=== PATIENT | male | born 1960 | race African-American/Black ===

== ENCOUNTER 2017-03-27 10:49 | Day surgery (SDC) | payer OTHER ==
[~2017-03-27 10:49] MED LIST: Acetaminophen TAB* 325 MG PO PRN; Buffered Lidocaine 0.9% SYRIN* 5 ML/SYR SYRINGE INTRADERM ONE
[2017-03-27] MEDS ORDERED: Midazolam* 1 MG/ML 2 ML VIAL (2 MG) ONE (11:36)
[2017-03-27] MEDS ORDERED: fentaNYL* 50 MCG/ML 2 ML VIAL (100 MCG VIAL) ONE (11:36)
[2017-03-27] MEDS ORDERED: Trypan Blue 0.06% SOL* 0.5 ML BTL ONE (12:27)
[2017-03-27] MEDS ORDERED: Lidocaine 2% MPF* 2 ML VIAL ONE (13:00)
[2017-03-27] MEDS ORDERED: Proparacaine 0.5% OPHTH.SOL* 15 ML BTL ONE (13:00)
[2017-03-27] MEDS ORDERED: acetaZOLAMIDE TAB* 250 MG ONE (13:00)
[2017-03-27] MEDS ORDERED: Flurbiprofen 0.03% OPTH.SOL* 2.5 ML BTL ONE (13:00)
[2017-03-27] MEDS ORDERED: Neomycin/Polymy/Dex OPTH.SUSP* MAXITROL 0.1% 5 ML ONE (13:00)
[2017-03-27] MEDS ORDERED: Lidocaine 2% EPI 1:200000 MPF* 20 ML VIAL ONE (13:00)
[2017-03-27] MEDS ORDERED: Povidone Iodine 5% OPTH* 30 ML BTL ONE (13:00)
[2017-03-27] MEDS ORDERED: Phenylephrine 2.5% OPTH.SOL* 2 ML BTL ONE (13:00)
[2017-03-27] MEDS ORDERED: Cyclopentolate 1% OPTH.SOL* 2 ML BTL ONE (13:00)
[2017-03-27 13:41] VITALS: BP 134/89
--- NOTE | 2017-03-27 16:49 | OP ---
DATE OF OPERATION: 03/27/2017 - [facility] DATE OF : 1960. SURGEON: Otis Marin M.D. PREOPERATIVE DIAGNOSIS: Cataract right eye. POSTOPERATIVE DIAGNOSIS: Cataract right eye. OPERATIVE PROCEDURE: Phacoemulsification right eye with IOL. DESCRIPTION OF PROCEDURE: The patient was brought to the operating room after being given 1/2% Alcaine with epinephrine drops in the preoperative area. The eye was prepped and draped in the usual sterile fashion. Sterile drape and eyelid speculum were placed. Again, topical 1/2% Alcaine with epinephrine was given. A paracentesis incision was made at the 9 o'clock position with the No.75 blade. Clear cornea incision 2.2 x 2.2-mm was created at the 12 o'clock position starting at the anterior limbus using the 2.2-mm keratome. The anterior chamber was irrigated with 0.4 mL of 1% non-preservative intracameral lidocaine and filled with DisCoVisc. A capsulorrhexis was completed using the cystotome and the Utrata forceps. Hydrodissection was performed with balanced salt solution. The lens nucleus was removed with the Phacoemulsification handpiece without incident. Cortex was removed with the irrigation-aspiration handpiece. The capsular bag was re-inflated using DisCoVisc and an [id number] implant was inserted with the shooter. The irrigation-aspiration handpiece was used to remove all residual DisCoVisc. The eye was refilled with balanced salt solution and the wound checked and found to be watertight. Topical Maxitrol drops were given. Of note, because of white anterior cortex, the VisionBlue was used to stain the anterior capsule prior to capsulorrhexis. During the surgery, there was a very poor red reflex and concern is that there may be some vitreous hemorrhage behind his white cataract. The surgery was performed, however, without incident. [id number]/[facility] #: [id number] [facility]
== END 2017-03-27 13:36 | disposition home or self-care (01) ==
LOC: OREAST 10:49
PROVIDERS: ATTEND Specialist
DX: H25.11 Age-related nuclear cataract, right eye (principal); H43.813 Vitreous degeneration, bilateral; I48.91 Unspecified atrial fibrillation; Z95.0 Presence of cardiac pacemaker; I25.110 Atherosclerotic heart disease of native coronary artery with unstable angina pectoris; Z79.01 Long term (current) use of anticoagulants; I10 Essential (primary) hypertension; Z87.891 Personal history of nicotine dependence
CPT/HCPCS: A9270-GY; J2250; J3010; V2632

== ENCOUNTER 2017-04-03 09:38 | Day surgery (SDC) | payer OTHER ==
[2017-04-03] MEDS ORDERED: Midazolam* 1 MG/ML 2 ML VIAL (2 MG) ONE ×2 (12:03→12:35)
[2017-04-03] MEDS ORDERED: fentaNYL* 50 MCG/ML 2 ML VIAL (100 MCG VIAL) ONE (12:03)
[2017-04-03 13:03] VITALS: BP 122/77
[2017-04-03] MEDS ORDERED: Lidocaine 1% MPF wEPI 200,000* 30 ML SDV ONE (13:51)
[2017-04-03] MEDS ORDERED: Phenylephrine 2.5% OPTH.SOL* 2 ML BTL ONE (13:51)
[2017-04-03] MEDS ORDERED: Cyclopentolate 1% OPTH.SOL* 2 ML BTL ONE (13:51)
[2017-04-03] MEDS ORDERED: Neomycin/Polymy/Dex OPTH.SUSP* MAXITROL 0.1% 5 ML ONE (13:51)
[2017-04-03] MEDS ORDERED: Proparacaine 0.5% OPHTH.SOL* 15 ML BTL ONE (13:51)
[2017-04-03] MEDS ORDERED: Lidocaine 1% MPF* 2 ML VIAL ONE (13:51)
[2017-04-03] MEDS ORDERED: Buffered Lidocaine 0.9% SYRIN* 5 ML/SYR SYRINGE ONE (13:51)
[2017-04-03] MEDS ORDERED: Flurbiprofen 0.03% OPTH.SOL* 2.5 ML BTL ONE (13:51)
[2017-04-03] MEDS ORDERED: Povidone Iodine 5% OPTH* 30 ML BTL ONE (13:51)
[2017-04-03] MEDS ORDERED: acetaZOLAMIDE TAB* 250 MG ONE (13:51)
--- NOTE | 2017-04-03 15:52 | OP ---
DATE OF OPERATION: 04/03/17 [facility] DATE OF : 58 SURGEON: Otis Marin M.D. PREOPERATIVE DIAGNOSIS: Cataract, left eye. POSTOPERATIVE DIAGNOSIS: Cataract, left eye. OPERATIVE PROCEDURE: Phacoemulsification, left eye with IOL. DESCRIPTION OF PROCEDURE: The patient was brought to the operating room after being given 1/2% Alcaine with epinephrine drops in the preoperative area. The eye was prepped and draped in the usual sterile fashion. Sterile drape and eyelid speculum were placed. Again, topical 1/2% Alcaine with epinephrine was given. A paracentesis incision was made at the 3 o'clock position with the No.75 blade. Clear cornea incision 2.2 x 2.2-mm was created at the 6 o'clock position starting at the anterior limbus using the 2.2-mm keratome. The anterior chamber was irrigated with 0.4 mL of 1% non-preservative intracameral lidocaine and filled with DisCoVisc. A capsulorrhexis was completed using the cystotome and the Utrata forceps. Hydrodissection was performed with balanced salt solution. The lens nucleus was removed with the Phacoemulsification handpiece without incident. Cortex was removed with the irrigation-aspiration handpiece. The capsular bag was re-inflated using DisCoVisc and an [id number] 23.5 implant was inserted with the shooter. The irrigation-aspiration handpiece was used to remove all residual DisCoVisc. The eye was refilled with balanced salt solution and the wound checked and found to be watertight. Topical Maxitrol drops were given. [id number]/[facility] #: [id number] [facility]
== END 2017-04-03 13:15 | disposition home or self-care (01) ==
LOC: OREAST 09:38
PROVIDERS: ATTEND Specialist
DX: H25.812 Combined forms of age-related cataract, left eye (principal); H40.1131 Primary open-angle glaucoma, bilateral, mild stage; H34.8132 Central retinal vein occlusion, bilateral, stable; E87.5 Hyperkalemia; E11.22 Type 2 diabetes mellitus with diabetic chronic kidney disease; I12.0 Hypertensive chronic kidney disease with stage 5 chronic kidney disease or end stage renal disease; N18.5 Chronic kidney disease, stage 5; Z79.84 Long term (current) use of oral hypoglycemic drugs; Z87.891 Personal history of nicotine dependence
CPT/HCPCS: A9270-GY; J2001; J2250; J3010; V2632

== ENCOUNTER 2017-06-26 07:02 | Day surgery (SDC) | payer OTHER ==
[2017-06-26] MEDS ORDERED: Hyaluronidase OVINE* 200 UNIT/ML ML SUBCUT ONE (07:05)
[2017-06-26] MEDS ORDERED: Lidocaine 2% PF* 10 ML AMP ONE (07:05)
[2017-06-26] MEDS ORDERED: Proparacaine 0.5% OPHTH.SOL* 15 ML BTL ONE (07:09)
[2017-06-26] MEDS ORDERED: Atropine 1% OPHTH.SOL* 2 ML BOT - 2 ML ONE (07:18)
[2017-06-26] MEDS ORDERED: Triamcinolone Acetonide* 40 MG/ML 1 ML VIAL ONE (07:18)
[2017-06-26] MEDS ORDERED: Acetylcholine 1:100 OPTH* OPHTH.SOLN ONE (07:18)
[2017-06-26] MEDS ORDERED: BSS OPTH.SOL* BTL ONE (07:19)
[2017-06-26] MEDS ORDERED: Neomycin/Polymy/Dex OPTH.SUSP* MAXITROL 0.1% 5 ML ONE (07:19)
[2017-06-26] MEDS ORDERED: fentaNYL* 50 MCG/ML 2 ML VIAL (100 MCG VIAL) ONE (08:02)
[2017-06-26] MEDS ORDERED: Midazolam* 1 MG/ML 2 ML VIAL (2 MG) ONE (08:03)
[2017-06-26] MEDS ORDERED: Propofol* 10 MG/ML 20 ML BTL IV PUSH ONE (08:03)
[2017-06-26 09:53] VITALS: BP 146/84
--- NOTE | 2017-06-27 02:00 | OP ---
DATE OF OPERATION: 06/26/17 - [facility] DATE OF : 58 SURGEON: Otis Marin MD ANESTHESIA: Local with MAC. PRE-OP DIAGNOSIS: Uncontrolled glaucoma, right eye. POST-OP DIAGNOSIS: Uncontrolled glaucoma, right eye. OPERATIVE PROCEDURE: Ahmed valve with donor sclera, right eye. COMPLICATIONS: None. DESCRIPTION OF PROCEDURE: The patient was given retrobulbar anesthesia in the operating room, 50:50 mixture of 2% lidocaine with epinephrine mixed with 0.75% Marcaine, 4 cc given in the muscle cone without difficulty. A lid speculum was placed. A 6-0 silk traction suture was placed through the superior limbus and rotated inferiorly. A fornix-based conjunctival peritomy was performed with Lashonda scissors from the 10 o'clock to 12 o'clock position. Dissection carried to the equator down to bare sclera with Lashonda scissors. The Ahmed valve FP7 was primed with saline and then placed on sclera with the anterior footplates approximately 10 mm posterior to the limbus. These footplates were sutured with two 10-0 Prolene interrupted sutures. Anterior chamber entered using the 27-gauge needle. Miochol instilled and then small amount of DisCoVisc. The tube was trimmed to the correct length and placed into the anterior chamber. The tube was then sutured to the sclera using 2 interrupted 10-0 Prolene sutures. The tube was covered using donor sclera and that was sutured down with four 10-0 nylon interrupted sutures. Then, the conjunctiva was advanced and closed using a running locking nylon suture at the limbus and a running locking 10-0 Vicryl along the edges. Paracentesis made at the 8 o' clock position, anterior chamber inflated with balanced salt solution. All wounds checked and found to be watertight. The traction suture removed. Topical atropine and Maxitrol given and the eye patched. [id number]/[facility] #: [id number] [facility]
== END 2017-06-26 09:58 | disposition home or self-care (01) ==
LOC: OREAST 07:02
PROVIDERS: ATTEND Specialist
DX: H40.51X1 Glaucoma secondary to other eye disorders, right eye, mild stage (principal); H34.8132 Central retinal vein occlusion, bilateral, stable; Z96.1 Presence of intraocular lens; E11.22 Type 2 diabetes mellitus with diabetic chronic kidney disease; I12.9 Hypertensive chronic kidney disease with stage 1 through stage 4 chronic kidney disease, or unspecified chronic kidney disease; N18.9 Chronic kidney disease, unspecified; E78.5 Hyperlipidemia, unspecified; E83.51 Hypocalcemia; Z87.891 Personal history of nicotine dependence; Z86.73 Personal history of transient ischemic attack (TIA), and cerebral infarction without residual deficits
CPT/HCPCS: A9270-GY; C1776; C1783; J2001; J2250; J2704; J3010; J3301; J3471

== ENCOUNTER → 2019-04-28 12:41 | Emergency (ER) | payer OTHER ==
[~2019-04-28 12:41] MED LIST changes: +AMLODIPINE 2.5 MG TAB (NF) PO ONE; -Acetaminophen TAB* 325 MG PO PRN; -Buffered Lidocaine 0.9% SYRIN* 5 ML/SYR SYRINGE INTRADERM ONE; +Calcium Gluconate INJ* 1 GM in NS 0.9% 100 ML* 100 ML IVPB ONE; +amLODIPine TAB* 5 MG PO ONE
[2019-04-28 13:42] LABS: ABS Basophils 0.1 10^3/ul (0-0.2); ABS Eosinophils 0.2 10^3/ul (0-0.6); ABS Lymphocytes 0.9 10^3/ul (1.0-4.8); ABS Monocytes 0.3 10^3/ul (0-0.8); ABS Neutrophils 6.6 10^3/ul (1.5-7.7); Eosinophil % 2.3 %; Hematocrit 35 % (42-52); Hemoglobin 11.7 g/dL (14.0-18.0); Lymphocyte % 11.1 %; Mean Corpuscular HGB Conc 33 g/dL (31-36); Mean Corpuscular Hemoglobin 28 pg (27-31); Mean Corpuscular Volume 85 fL (80-94); Mean Platelet Volume 7.9 fL (7.4-10.4); Platelet Count 277 10^3/uL (150-450); Red Blood Count 4.16 10^6 /uL (4.18-5.48); Red Cell Distribution Width 16 % (10-15); White Blood Count 8.1 10^3/uL (3.5-10.8)
[2019-04-28 14:07] LABS: ALT 15 U/L (7-52); AST 14 U/L (13-39); Albumin 4.1 g/dL (3.2-5.2); Alkaline Phosphatase 137 U/L (34-104); Anion Gap 24 mmol/L (2-11); CO2 Carbon Dioxide 18 mmol/L (22-32); Chloride 94 mmol/L (101-111); EGFR African American 3.5 (>60); EGFR Non-African American 2.9 (>60); Glucose 164 mg/dL (70-100); Potassium 3.6 mmol/L (3.5-5.0); Sodium 136 mmol/L (135-145); Total Protein 8.1 g/dL (6.4-8.9)
[2019-04-28 14:25] LABS: Calcium 4.9 mg/dL (8.6-10.3)
[2019-04-28 14:26] LABS: Troponin I 0.04 ng/mL (<0.04)
[2019-04-28 14:30] LABS: BUN/Creatinine Ratio 8.8 (8-20); Blood Urea Nitrogen 151 mg/dL (6-24)
--- NOTE | 2019-04-28 14:31 | ED ---
Neurological HPI - HPI Summary HPI Summary: This patient is a 58 year old M presenting to [facility] by EMS accompanied by with a chief complaint of balance and directional issues for the past several days. Pt reports a couple nights ago he had lost his balance and hit his head. Pt also reports that at night he has trouble with direction at night, and during the day he reports that he usually feels normal. Pt can not remember what occurred today, (which he says that sometimes occurs). Patient reports nausea, and vomiting in the mornings since 04/09/19, pt is urinating normally. Patient denies fevers, chills, SOB, edema in legs, CP, back pain, abdominal pain. Pt has HTN, however has not taken medication since March. 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 - History of Current Complaint Chief Complaint: EDWeakness Stated Complaint: GENERAL ILLNESS PER EMS Time Seen by Provider: 04/28/19 12:53 Hx Obtained From: Patient, Family/Materials Specialist, EMS Onset/Duration: Gradual Onset, Started days ago Timing: Constant Pain Intensity: 0 Pain Scale Used: 0-10 Numeric Character: Sensory Loss Associated Signs and Symptoms: Positive: Nausea/Vomiting. Negative: Fever, Chest Pain, Shortness of Breath - Allergy/Home Medications Allergies/Adverse Reactions: Allergies Allergy/AdvReac Type Severity Reaction Status Date / Time No Known Allergies Allergy Verified 06/26/17 07:20 Home Medications: Home Medications Calcium Carbonate/Vitamin D3 [Calcium 600 + Vit D Tablet] 1 tab PO DAILY [History Confirmed 04/28/19] Lisinopril TAB* [Prinivil TAB*] 10 mg PO DAILY 04/28/19 [History Confirmed 04/28] amLODIPine TAB* [Norvasc 5 mg TAB*] 5 mg PO DAILY 04/28/19 [History Confirmed ] PMH/Surg Hx/FS Hx/Imm Hx Endocrine/Hematology History: Reports: Hx Diabetes - type 2-CONTROLLED WITH DIET - NO MEDICATION FOR Cardiovascular History: Reports: Hx Hypertension - ON MEDICATION FOR Denies: Hx Pacemaker/ICD, Other Cardiovascular Problems/Disorders Respiratory History: Denies: Other Respiratory Problems/Disorders GI History: Denies: Other GI Disorders History: Reports: Hx Kidney Stones - HX OF AND CURRENTLY, Other Problems/ Disorders - having kidney pain from a fall-3 YEARS AGO Musculoskeletal History: Denies: Other Musculoskeletal History Sensory History: Reports: Hx Cataracts - BILATERAL, Hx Contacts or Glasses - contacts-INSTRUCTS GIVEN, Hx Glaucoma - RIGHT EYE Denies: Hx Hearing Aid Opthamlomology History: Reports: Hx Cataracts - BILATERAL, Hx Contacts or Glasses - contacts-INSTRUCTS GIVEN, Hx Glaucoma - RIGHT EYE - Surgical History Surgery Procedure, Year, and Place: lasik surgery. BILATERAL CATARACTS REMOVED WITH LENS IMPLANT. RIGHT EY WITH BLEEDING-2017 Hx Anesthesia Reactions: No Infectious Disease History: No Infectious Disease History: Reports: Traveled Outside the [place] in Last 30 Days - Family History Known Family History: Positive: Hypertension - Social History Alcohol Use: None Substance Use Type: Reports: None Smoking Status (MU): Former Smoker Amount Used/How Often: 1/2 PPD X 10 YEARS Have You Smoked in the Last Year: No Review of Systems Negative: Fever, Chills Negative: Chest Pain Positive: Vomiting, Nausea. Negative: Abdominal Pain Negative: Edema, Other - back pain Neurological: Other - balance issues Positive: Slurred Speech All Other Systems Reviewed And Are Negative: Yes Physical Exam - Summary Physical Exam Summary: Constitutional: Well-developed, Well-nourished, Alert. (-) Distressed Skin: Warm, Dry HENT: Normocephalic; Atraumatic; Subacute 1.5 cm irregularly shaped laceration on his right forehead Eyes: Conjunctiva normal Neck: Musculoskeletal ROM normal neck. (-) JVD, (-) Stridor, (-) Tracheal deviation Cardio: Rhythm regular, rate normal, Heart sounds normal; Intact distal pulses; The pedal pulses are 2+ and symmetric. Radial pulses are 2+ and symmetric. (-) Murmur Pulmonary/Chest wall: Effort normal. (-) Respiratory distress, (-) Wheezes, (-) Rales Abd: Soft, (-) tenderness, (-) Distension, (-) Guarding, (-) Rebound Musculoskeletal: (-) Edema Lymph: (-) Cervical adenopathy Neuro: Alert, Oriented x3, Mildly confused GCS 14 Psych: Mood and affect Normal Triage Information Reviewed: Yes Vital Signs On Initial Exam: Initial Vitals Temp Pulse Resp BP Pulse Ox 98.2 F 98 16 164/99 97 04/28/19 13:03 04/28/19 13:03 04/28/19 13:03 04/28/19 13:03 04/28/19 13:03 Vital Signs Reviewed: Yes - Rc Coma Scale Best Eye Response: 4 - Spontaneous Best Motor Response: 6 - Obeys Commands Best Verbal Response: 4 - Confused Coma Scale Total: 14 Diagnostics - Vital Signs Vital Signs Temp Pulse Resp BP Pulse Ox 04/28/19 14:00 100 14 98 04/28/19 13:48 96 13 177/113 97 04/28/19 13:43 97 14 96 04/28/19 13:36 96 04/28/19 13:18 101 15 178/101 97 04/28/19 13:03 98.2 F 98 16 164/99 97 - Laboratory Lab Results: Lab Results 04/28/19 04/28/19 04/28/19 Range/Units 13:29 13:29 13:29 WBC 8.1 (3.5-10.8) 10^3/uL RBC 4.16 L (4.18-5.48) 10^6 /uL Hgb 11.7 L (14.0-18.0) g/dL Hct 35 L (42-52) % MCV 85 (80-94) fL MCH 28 (27-31) pg MCHC 33 (31-36) g/dL RDW 16 H (10-15) % Plt Count 277 (150-450) 10^3/uL MPV 7.9 (7.4-10.4) fL Neut % (Auto) 82.4 % Lymph % (Auto) 11.1 % Dooly % (Auto) 3.5 % Eos % (Auto) 2.3 % Baso % (Auto) 0.7 % Absolute Neuts (auto) 6.6 (1.5-7.7) 10^3/ul Absolute Lymphs (auto) 0.9 L (1.0-4.8) 10^3/ul Absolute Monos (auto) 0.3 (0-0.8) 10^3/ul Absolute Eos (auto) 0.2 (0-0.6) 10^3/ul Absolute Basos (auto) 0.1 (0-0.2) 10^3/ul Absolute Nucleated RBC 0.0 10^3/ul Nucleated RBC % 0.0 Sodium 136 (135-145) mmol/L Potassium 3.6 (3.5-5.0) mmol/L Chloride 94 L (101-111) mmol/L Carbon Dioxide 18 L (22-32) mmol/L Anion Gap 24 H (2-11) mmol/L BUN Pending Creatinine 17.12 H (0.67-1.17) mg/dL Est GFR ( Amer) 3.5 (>60) Est GFR (Non-Af Amer) 2.9 (>60) BUN/Creatinine Ratio Pending Glucose 164 H (70-100) mg/dL Lactic Acid 1.2 (0.5-2.0) mmol/L Calcium Pending Total Bilirubin 0.40 (0.2-1.0) mg/dL AST 14 (13-39) U/L ALT 15 (7-52) U/L Alkaline Phosphatase 137 H (34-104) U/L Troponin I 0.03 (<0.04) ng/mL B-Natriuretic Peptide (<=100) pg/mL Total Protein 8.1 (6.4-8.9) g/dL Albumin 4.1 (3.2-5.2) g/dL Globulin 4.0 (2-4) g/dL Albumin/Globulin Ratio 1.0 (1-3) Lipase 116 H (11.0-82.0) U/L 04/28/19 Range/Units 13:29 WBC (3.5-10.8) 10^3/uL RBC (4.18-5.48) 10^6 /uL Hgb (14.0-18.0) g/dL Hct (42-52) % MCV (80-94) fL MCH (27-31) pg MCHC (31-36) g/dL RDW (10-15) % Plt Count (150-450) 10^3/uL MPV (7.4-10.4) fL Neut % (Auto) % Lymph % (Auto) % Dooly % (Auto) % Eos % (Auto) % Baso % (Auto) % Absolute Neuts (auto) (1.5-7.7) 10^3/ul Absolute Lymphs (auto) (1.0-4.8) 10^3/ul Absolute Monos (auto) (0-0.8) 10^3/ul Absolute Eos (auto) (0-0.6) 10^3/ul Absolute Basos (auto) (0-0.2) 10^3/ul Absolute Nucleated RBC 10^3/ul Nucleated RBC % Sodium (135-145) mmol/L Potassium (3.5-5.0) mmol/L Chloride (101-111) mmol/L Carbon Dioxide (22-32) mmol/L Anion Gap (2-11) mmol/L BUN Creatinine (0.67-1.17) mg/dL Est GFR ( Amer) (>60) Est GFR (Non-Af Amer) (>60) BUN/Creatinine Ratio Glucose (70-100) mg/dL Lactic Acid (0.5-2.0) mmol/L Calcium Total Bilirubin (0.2-1.0) mg/dL AST (13-39) U/L ALT (7-52) U/L Alkaline Phosphatase (34-104) U/L Troponin I (<0.04) ng/mL B-Natriuretic Peptide 430 H (<=100) pg/mL Total Protein (6.4-8.9) g/dL Albumin (3.2-5.2) g/dL Globulin (2-4) g/dL Albumin/Globulin Ratio (1-3) Lipase (11.0-82.0) U/L Result Diagrams: 04/28/19 13:29 04/28/19 13:29 Lab Statement: Any lab studies that have been ordered have been reviewed, and results considered in the medical decision making process. - Radiology CXR Radiology Interpretation Completed By: Radiologist Summary of Radiographic Findings: CXR reveals, per radiologist, IMPRESSION: #. No evidence for acute intrathoracic disease. ED physician has reviewed this radiology report. - CT Brain CT CT Interpretation Completed By: Radiologist Summary of CT Findings: Brain CT reveals, per radiologist, IMPRESSION: No evidence of intracranial mass or hemorrhage is noted. ED physician has reviewed this radiology report. - EKG 1320 Cardiac Rate: NL - 98 bpm EKG Rhythm: Sinus Rhythm Summary of EKG Findings: An EKG at 13:20 reveals normal sinus rhythm 98 bpm, normal IN, normal QRS, prolonged QTc, normal ST, normal T-waves, QT prolongation , LVH, nonspecific EKG Re-Evaluation - Re-Evaluation First Eval Re-Evaluation Time: 15:35 Comment: Spoke to pt about results and plan of care. Course/Dx - Course Course Of Treatment: This patient is a 58 year old M presenting to [facility] by EMS accompanied by with a chief complaint of balance and directional issues for the past several days. Pt reports a couple nights ago he had lost his balance and hit his head. Pt also reports that at night he has trouble with direction at night, but during the day he usually feels normal. Pt can not remember what occurred today, and he says that sometimes occurs. Patient reports nausea, and vomiting in the mornings since 04/09/19, urinating normally. Patient denies fevers, chills, SOB, edema in legs, CP, back pain, abdominal pain. Pt has HTN, however has not taken medication since March. Patient will be transferred to [facility]. The patient is agreeable with this plan. Physical Exam Findings was normal except for Subacute 1.5 cm irregularly shaped laceration on his right forehead, pt is also mildly confused with a GCS 14. Blood work obtained. Troponin of 0.04. Second troponin of 0.02. Creatinine 17.12, Glucose is 164, Alkaline Phosphatase 137, B-Natriuretic Peptide is 430, Lipase is 116, Chloride is 94, Carbon Dioxide is 18, RBC is 4.16, Hgb is 11.7, Hct is 35, RDW is 16. Calcium of 4.9. BUN of 151, Ionized Calcium is .48, Phosphorus is 8.8. An EKG at 13:20 reveals normal sinus rhythm 98 bpm, normal IN, normal QRS, prolonged QTc, normal ST, normal T-waves, QT prolongation, LVH, nonspecific EKG. CXR reveals, per radiologist, IMPRESSION: #. No evidence for acute intrathoracic disease. Brain CT reveals, per radiologist, IMPRESSION: No evidence of intracranial mass or hemorrhage is noted. In the ED course the patient was given calcium gluconate. We discussed patient care with Dr. Cortez and she recommended pt be transferred to another center for dialysis. Spoke to Dr. Rocael Fish who accepts pt for transfer at [facility], to a telemetry bed. Dr. Otis Bone, nephrology also agrees with accepting pt for transfer. Patients Dx is acute chronic renal failure, confusion, hypocalcemia, vomiting and nausea. Patient will be transferred to [facility]. The patient is agreeable with this plan. - Diagnoses Provider Diagnoses: Acute on chronic renal failure, Hypocalcemia, Confusion, QT prolongation, Nausea & vomiting - Physician Notifications Discussed Care Of Patient With: Daly Cortez Time Discussed With Above Provider: 15:27 Instructed by Provider To: Other - Discussed patient care with Dr. Cortez and she recommended pt be transferred to another center for dialysis. 16:16 - Discussed case with Dr. Rocael Fish who accepts pt for transfer at [facility], to a telemetry bed. 16:37 - Dr. Otis Bone, nephrology also agrees with accepting pt for transfer. - Critical Care Time Critical Care Time: 30-74 min - 45 mins Discharge - Sign-Out/Discharge Documenting (check all that apply): Patient Departure - transfer Patient Received Moderate/Deep Sedation with Procedure: No - Discharge Plan Condition: Good Disposition: TRANS HIGHER LVL OF CARE FAC Referrals: Gabriella Miller MD [Primary Care Provider] - - Billing Disposition and Condition Condition: GOOD Disposition: Trans Higher Lvl of Care Fac - Attestation Statements Document Initiated by Elizabethibe: Yes Documenting Scribe: Daly Lew Provider For Whom Elizabethibe is Documenting (Include Credential): Alis Hernandes MD Scribe Attestation: Daly Rutherford scribed for Alis Campbell MD on 04/28/19 at 1737. Scribe Documentation Reviewed: Yes Provider Attestation: The documentation as recorded by the scribeDaly accurately reflects the service I personally performed and the decisions made by me, Ails Campbell MD Status of Scribe Document: Viewed
[2019-04-28 16:48] LABS: Activated Partial Thrombo Time 32.7 seconds (26.0-38.0); INR 1.03 (0.82-1.09)
[2019-04-28 18:26] VITALS: BP 194/116
== END | disposition short-term general hospital (02) ==
LOC: ED 12:41
DX: N17.9 Acute kidney failure, unspecified (principal); N18.9 Chronic kidney disease, unspecified; E83.51 Hypocalcemia; R41.0 Disorientation, unspecified; I45.81 Long QT syndrome; R11.2 Nausea with vomiting, unspecified; I69.323 Fluency disorder following cerebral infarction; E11.22 Type 2 diabetes mellitus with diabetic chronic kidney disease; I12.9 Hypertensive chronic kidney disease with stage 1 through stage 4 chronic kidney disease, or unspecified chronic kidney disease; Z87.891 Personal history of nicotine dependence; Z79.899 Other long term (current) drug therapy
CPT/HCPCS: 36415; 70450; 71045; 80053; 82330; 83605; 83690; 83880; 84100; 84484; 85025; 85610; 85730; 93005; 96365; 99283; A9270-GY; J0610

== ENCOUNTER 2019-05-11 07:23 | Inpatient (IN) | payer OTHER ==
[2019-05-11] MEDS: Docusate CAP* 100 MG PO SCH (21:11)
[2019-05-11] MEDS: Metoprolol Tartrate TAB* 25 MG PO SCH (21:11)
[2019-05-11] MEDS: Melatonin 3 MG TAB PO PRN (21:13)
[2019-05-11] MEDS: Senna TAB 8.6 mg* TAB PO PRN (21:13)
[2019-05-11] MEDS: Atorvastatin* 20 MG TAB PO SCH (21:13)
[2019-05-11] MEDS: Erythromycin OPTH OINT* APPLIC OINT LEFT EYE SCH (21:19)
--- NOTE | 2019-05-11 21:44 | HP ---
ADMISSION HISTORY AND PHYSICAL: DATE OF ADMISSION: 05/11/19 REASON FOR ADMISSION: Weakness from diabetes and renal failure. HISTORY OF ILLNESS: Sebastian Mclain is a 58-year-old male. He has a medical history significant for having had previous strokes in 2014, 2016 and 2017. He has a history of hypertension, but has not been taking medications for a while. The patient went on a 2-year trip to [facility] in 2017 and recently returned. He is currently living with his ex-. The patient apparently lost his balance somewhere around the 04/25 and fell, hitting his head. The patient was having trouble moving around and trouble with his memory. He had a lot of trouble with weakness and he came to emergency room at [facility] on . In the emergency room, he had labs drawn. He also had a CAT scan of his brain that showed no intracranial mass or hemorrhage. A chest x-ray was done which showed no infiltrates or exudates. The patient had blood work done which was significant for a BUN of 151 and a creatinine of 17. The patient had an EKG done that showed slightly prolonged QTc interval. The patient also had a glucose of 164. The case was discussed with the covering drilling field specialist who recommended that the patient be transferred to another institution for dialysis. He was transferred to the [facility]. He was admitted to [facility] and had a catheter placed for dialysis. The patient had emergency dialysis on the night of 04/28 and was also dialyzed for 3 consecutive days on 04/29/19, 04/30/19 an 05/01/19. The patient was put on fingersticks for his diabetes, but this was later revised and the patient did not require insulin for his diabetes. He had developed folliculitis under his armpit and was treated with doxycycline for that. The patient still had trouble mobilizing. He was felt to have physical therapy and occupational therapy needs. He is now being admitted for inpatient rehab so that he might return to independent living. PAST MEDICAL HISTORY: Significant for the aforementioned hypertension and the previous strokes. CURRENT MEDICATIONS: Include: 1. Aspirin 81 mg daily. 2. He is on PhosLo with meals. 3. He is on Lopressor 25 mg twice a day. 4. Midodrine 2.5 mg every 8 hours. 5. Crestor. 6. He also gets Timoptic eye drops. ALLERGIES: The patient has no known drug allergies. SOCIAL HISTORY: He is a nonsmoker, nondrinker. He lives with his ex- currently in a 2-story house. There is a bathroom and bedroom on the first floor. REVIEW OF SYSTEMS: The patient reports no current shortness of breath or chest pain. PHYSICAL EXAMINATION VITAL SIGNS: The patient's temperature is 97.9, blood pressure is 110/74, pulse 76, respirations 14. HEENT: His extraocular movements are intact. Tongue is midline. NECK: Supple. LUNGS: Sounded clear to auscultation bilaterally. HEART: Sounds are regular, S1 and S2 are audible. ABDOMEN: Soft and nontender. EXTREMITIES: Showed normal muscle bulk and tone. Peripheral pulses are intact. His neurologic sensation appeared to be intact. Muscle strength appears to be about 4+/5 throughout. He is alert and oriented. FUNCTIONAL EXAM: The patient transfers with contact guard to min assist. ASSESSMENT: Weakness, following an episode of renal failure. The patient is now on hemodialysis 3 times a week. PLAN: Integrate him into a comprehensive and therapeutic rehab program with the following goals: 1. Physical therapy will work with the patient. They are going to work on functional transfer training and ambulation training with a walker. 2. Occupational therapy will see the patient and work on his activities of daily living including toileting and toilet transfers. 3. Continue hemodialysis 3 days a week, Saturday, , Saturday. 4. We are going to test fingersticks with before meals and at bedtime. If his fingersticks remain low, we will change them to once a day. 5. For his high blood pressure, we are going to continue midodrine and Lopressor. 6. For secondary stroke prevention, continue an aspirin as well as Crestor. 7. Nephrology consultation is necessary. 8. manager financial services will be closely involved to make sure that any services and equipment the patient requires is in place prior to discharge. 9. Family training as appropriate. 10. Home with appropriate services. ESTIMATED LENGTH OF STAY: 7 to 10 days. [id number]/[facility] #: [id number] [facility]
--- NOTE | 2019-05-12 12:34 | PMRUTEAM ---
PMRU: Team Meeting Current Status: Nursing: Current Status Skin Deviations [Right Upper Other Chest] Skin Deviations [Right Upper Other Eye] Skin Deviation Description [ chest port Right Upper Chest] Skin Deviation Description [ healed laceration Right Upper Eye] Physical Therapy: Current Status Bed Mobility Assistance Supervision Transfer Mobility Assistance Contact Guard Ambulation Assistance Contact Guard STAIRS: Contact guard with 6 steps Occupational Therapy: Current Status Upper Body Dressing Supervision Upper Body Dressing Progress set up Lower Body Dressing Supervision Lower Body Dressing Progress set up Bathing Supervision Bathing Progress set up Toileting Supervision Toilet Transfer Supervision Shower Transfer Progress TBA Eating Independent Social Work: Current Status Discharge Plan return home with his ex- prior to returning to [facility]. Potential for Family Training TBD Anticipated Discharge Home Destination Anticipated Discharge He has tickets for a return flight to [facility] for Destination Comment 05/26 Discharge With Home care, family support and dialysis Goals: Social Work: Goals Discharge Plan return home with his ex- prior to returning to [facility]. Potential for Family Training TBD Anticipated Discharge Home Destination Anticipated Discharge He has tickets for a return flight to [facility] for Destination Comment 05/26 Discharge With Home care, family support and dialysis Medicine Note: Length of Stay: 5 days Anticipated Discharge Destination: Home Tentative Discharge Date: May 16, 2019 Discharged to: Home
[2019-05-12] MEDS: Calcium Acetate CAP* 667 MG PO SCH ×4 (16:28→16:46)
[2019-05-12] MEDS: Aspirin EC TAB* 81 MG TAB.EC PO SCH (16:28)
[2019-05-12] MEDS: Calcitriol CAP* 0.25 MCG PO SCH (16:30)
[2019-05-12] MEDS: Timolol 0.25% OPHTH.SOLN* BTL BOTH EYES SCH (16:34)
[2019-05-12] MEDS: Erythromycin OPTH OINT* APPLIC OINT LEFT EYE SCH ×3 (16:42→19:47)
[2019-05-12] MEDS: Docusate CAP* 100 MG PO SCH ×2 (16:43→19:40)
[2019-05-12] MEDS: Metoprolol Tartrate TAB* 25 MG PO SCH (16:46)
--- NOTE | 2019-05-12 19:30 | PN ---
Progress Note Date of Service: 05/12/19 Note: GOPI QUIROZ was visited. Therapy notes read and reviewed. He was discussed in interdisciplinary team rounds. Did HD today. He is on both Midodrine and Lopressor. Will d/c lopressor. follow BP. Blood sugars have not needed coverage. Current Medications: Active Medications Generic Name Dose Route Start Last Admin Trade Name Freq PRN Reason Stop Dose Admin Acetaminophen 650 mg 05/11/19 17:31 Tylenol Tab* PO Q6H PRN FEVER/PAIN Aspirin 81 mg 05/12/19 09:00 05/12/19 16:28 Aspirin Ec Tab* PO 81 mg DAILY TRUDY Administration Atorvastatin Calcium 20 mg 05/11/19 21:00 05/11/19 21:13 Lipitor* PO 20 mg BEDTIME TRUDY Administration Calcitriol 0.25 mcg 05/12/19 09:00 05/12/19 16:30 Rocaltrol Cap* PO 0.25 mcg DAILY TRUDY Administration Calcium Acetate 1,334 mg 05/12/19 07:30 05/12/19 16:46 Phoslo Cap* PO Not Given AC TRUDY Docusate Sodium 100 mg 05/11/19 21:00 05/12/19 16:43 Colace Cap* PO Not Given BID TRUDY Erythromycin 1 applic 05/11/19 21:00 05/12/19 16:45 Erythromycin Opth Oint* LEFT EYE 05/15/19 23:59 Not Given TID TRUDY Melatonin 3 mg 05/11/19 19:50 05/11/19 21:13 Melatonin PO 3 mg BEDTIME PRN Administration SLEEP Midodrine 2.5 mg 05/12/19 16:00 05/12/19 16:31 Midodrine PO 2.5 mg 0000,0800,1600 TRUDY Administration Protocol Senna 2 tab 05/11/19 17:31 05/11/19 21:13 Senokot Tab* PO 2 tab BEDTIME PRN Administration CONSTIPATION Timolol Maleate 1 drop 05/12/19 09:00 05/12/19 16:34 Timoptic Ophth.Soln 0.25% BOTH EYES 1 drop DAILY TRUDY Administration Vital Signs: Vital Signs Temp Pulse Resp BP Pulse Ox 98.4 F 84 16 108/69 100 05/12/19 16:52 05/12/19 16:52 05/12/19 16:52 05/12/19 16:52 05/12/19 16:52 Lab Results: Laboratory Results - last 24 hr 05/11/19 05/11/19 05/12/19 18:09 21:55 18:40 POC Glucose (mg/dL) 75 88 128 H Exam: GENERAL: No distress HEENT: Atraumatic LUNGS: Clear bilaterally HEART: Regular rhythm ABDOMEN: Soft EXTREMITIES: Normal bulk and tone NEUROLOGIC: Sensation intact. Muscle strength / Assessment/Plan: 1. Acute on chronic renal failure, now on Hemodialysis: HD //. PT/OT 2. Weakness from renal failure: PT/OT. Doing better 3. Elevated blood glucose: resolved after dialysis 4. Hypotension: D/C lopressor 5. History of CVA: ASA/Crestor 6. Advance Directives: Full code 7. DVT Prophylaxis: He scores low risk. Ambulate 05/12/19 19:28
[2019-05-12] MEDS: Atorvastatin* 20 MG TAB PO SCH (19:40)
[2019-05-12] MEDS: Senna TAB 8.6 mg* TAB PO PRN (19:40)
[2019-05-13 08:27] LABS: ABS Eosinophils 0.2 10^3/ul (0-0.6); ABS Lymphocytes 1.6 10^3/ul (1.0-4.8); ABS Monocytes 0.5 10^3/ul (0-0.8); ABS Neutrophils 4.7 10^3/ul (1.5-7.7); Eosinophil % 3.1 %; Hematocrit 35 % (42-52); Hemoglobin 11.3 g/dL (14.0-18.0); Mean Corpuscular HGB Conc 32 g/dL (31-36); Mean Corpuscular Hemoglobin 28 pg (27-31); Mean Corpuscular Volume 87 fL (80-94); Platelet Count 228 10^3/uL (150-450); Red Blood Count 4.02 10^6 /uL (4.18-5.48); Red Cell Distribution Width 15 % (10-15); White Blood Count 7.1 10^3/uL (3.5-10.8)
[2019-05-13 08:42] LABS: Albumin 4.2 g/dL (3.2-5.2); Albumin/Globulin Ratio 1.3 (1-3); BUN/Creatinine Ratio 5.9 (8-20); Calcium 7.5 mg/dL (8.6-10.3); EGFR African American 9.3 (>60); EGFR Non-African American 7.7 (>60); Globulin 3.2 g/dL (2-4); Total Bilirubin 0.4 mg/dL (0.2-1.0); Total Protein 7.4 g/dL (6.4-8.9)
[2019-05-13] MEDS: Aspirin EC TAB* 81 MG TAB.EC PO SCH (09:23)
[2019-05-13] MEDS: Calcium Acetate CAP* 667 MG PO SCH ×3 (09:23→16:23)
[2019-05-13] MEDS: Calcitriol CAP* 0.25 MCG PO SCH (10:06)
[2019-05-13] MEDS: Timolol 0.25% OPHTH.SOLN* BTL BOTH EYES SCH (10:06)
[2019-05-13] MEDS: Docusate CAP* 100 MG PO SCH ×2 (10:06→20:15)
[2019-05-13] MEDS: Erythromycin OPTH OINT* APPLIC OINT LEFT EYE SCH ×3 (10:10→20:16)
--- NOTE | 2019-05-13 18:32 | PN ---
Progress Note Date of Service: 05/13/19 Note: GOPI QUIROZ was visited. Therapy notes read and reviewed. He is doing okay but is slightly impulsive and a little contentious. Lytes ok today. BP also ok, off lopressor. Fasting blood glucose high (155) Current Medications: Active Medications Generic Name Dose Route Start Last Admin Trade Name Freq PRN Reason Stop Dose Admin Acetaminophen 650 mg 05/11/19 17:31 Tylenol Tab* PO Q6H PRN FEVER/PAIN Aspirin 81 mg 05/12/19 09:00 05/13/19 09:23 Aspirin Ec Tab* PO 81 mg DAILY TRUDY Administration Atorvastatin Calcium 20 mg 05/11/19 21:00 05/12/19 19:40 Lipitor* PO 20 mg BEDTIME TRUDY Administration Calcitriol 0.25 mcg 05/12/19 09:00 05/13/19 10:06 Rocaltrol Cap* PO 0.25 mcg DAILY TRUDY Administration Calcium Acetate 1,334 mg 05/12/19 07:30 05/13/19 16:23 Phoslo Cap* PO 1,334 mg AC TRUDY Administration Docusate Sodium 100 mg 05/11/19 21:00 05/13/19 10:06 Colace Cap* PO 100 mg BID TRUDY Administration Erythromycin 1 applic 05/11/19 21:00 05/13/19 13:52 Erythromycin Opth Oint* LEFT EYE 05/15/19 23:59 1 applic TID TRUDY Administration Melatonin 3 mg 05/11/19 19:50 05/11/19 21:13 Melatonin PO 3 mg BEDTIME PRN Administration SLEEP Midodrine 2.5 mg 05/12/19 16:00 05/13/19 16:22 Midodrine PO 2.5 mg 0000,0800,1600 TRUDY Administration Protocol Senna 2 tab 05/11/19 17:31 05/12/19 19:40 Senokot Tab* PO 2 tab BEDTIME PRN Administration CONSTIPATION Timolol Maleate 1 drop 05/12/19 09:00 05/13/19 10:06 Timoptic Ophth.Soln 0.25% BOTH EYES 1 drop DAILY TRUDY Administration Vital Signs: Vital Signs Temp Pulse Resp BP Pulse Ox 98.7 F 90 16 110/88 100 05/13/19 05:50 05/13/19 05:52 05/13/19 08:00 05/13/19 05:52 07/31/19 08:00 Lab Results: Laboratory Results - last 24 hr 05/12/19 05/13/19 05/13/19 18:40 07:32 07:32 WBC 7.1 RBC 4.02 L Hgb 11.3 L Hct 35 L MCV 87 MCH 28 MCHC 32 RDW 15 Plt Count 228 MPV 8.0 Neut % (Auto) 66.7 Lymph % (Auto) 22.0 [place] % (Auto) 7.6 Eos % (Auto) 3.1 Baso % (Auto) 0.6 Absolute Neuts (auto) 4.7 Absolute Lymphs (auto) 1.6 Absolute Monos (auto) 0.5 Absolute Eos (auto) 0.2 Absolute Basos (auto) 0.0 Absolute Nucleated RBC 0.0 Nucleated RBC % 0.0 Sodium 135 Potassium 4.0 Chloride 97 L Carbon Dioxide 25 Anion Gap 13 H BUN 43 H Creatinine 7.34 H Est GFR ( Amer) 9.3 Est GFR (Non-Af Amer) 7.7 BUN/Creatinine Ratio 5.9 L Glucose 150 H POC Glucose (mg/dL) 128 H Calcium 7.5 L Total Bilirubin 0.40 AST 42 H ALT 42 Alkaline Phosphatase 120 H Total Protein 7.4 Albumin 4.2 Globulin 3.2 Albumin/Globulin Ratio 1.3 05/13/19 05/13/19 05/13/19 07:35 11:54 17:06 WBC RBC Hgb Hct MCV MCH MCHC RDW Plt Count MPV Neut % (Auto) Lymph % (Auto) [place] % (Auto) Eos % (Auto) Baso % (Auto) Absolute Neuts (auto) Absolute Lymphs (auto) Absolute Monos (auto) Absolute Eos (auto) Absolute Basos (auto) Absolute Nucleated RBC Nucleated RBC % Sodium Potassium Chloride Carbon Dioxide Anion Gap BUN Creatinine Est GFR ( Amer) Est GFR (Non-Af Amer) BUN/Creatinine Ratio Glucose POC Glucose (mg/dL) 155 H 87 81 Calcium Total Bilirubin AST ALT Alkaline Phosphatase Total Protein Albumin Globulin Albumin/Globulin Ratio Exam: GENERAL: No distress HEENT: Atraumatic LUNGS: Clear bilaterally HEART: Regular rhythm ABDOMEN: Soft EXTREMITIES: Normal bulk and tone NEUROLOGIC: Sensation intact. Muscle strength 02/15 Assessment/Plan: 1. Acute on chronic renal failure, now on Hemodialysis: HD /Th/Sa. PT/OT 2. Weakness from renal failure: PT/OT. Doing better 3. Elevated blood glucose: will need follow up 4. Hypotension: lopressor stopped 5. History of CVA: ASA/Crestor 6. Advance Directives: Full code 7. DVT Prophylaxis: He scores low risk. Ambulate 05/13/19 18:33
[2019-05-13] MEDS: Atorvastatin* 20 MG TAB PO SCH (20:15)
[2019-05-14] MEDS: Calcium Acetate CAP* 667 MG PO SCH ×3 (15:52→17:33)
[2019-05-14] MEDS: Docusate CAP* 100 MG PO SCH ×2 (15:52→20:52)
[2019-05-14] MEDS: Calcitriol CAP* 0.25 MCG PO SCH (15:52)
[2019-05-14] MEDS: Erythromycin OPTH OINT* APPLIC OINT LEFT EYE SCH ×3 (15:53→20:53)
[2019-05-14] MEDS: Aspirin EC TAB* 81 MG TAB.EC PO SCH (16:54)
[2019-05-14] MEDS: Acetaminophen TAB* 325 MG PO PRN (17:34)
[2019-05-14] MEDS: Timolol 0.25% OPHTH.SOLN* BTL BOTH EYES SCH (17:35)
--- NOTE | 2019-05-14 19:25 | PN ---
Progress Note Date of Service: 05/14/19 Note: GOPI QUIROZ was visited. Therapy notes read and reviewed. He has no complaints today. No SOB. He is able to walk with a little imbalance and still requires assist Current Medications: Active Medications Generic Name Dose Route Start Last Admin Trade Name Freq PRN Reason Stop Dose Admin Acetaminophen 650 mg 05/11/19 17:31 05/14/19 17:34 Tylenol Tab* PO 650 mg Q6H PRN Administration FEVER/PAIN Aspirin 81 mg 05/12/19 09:00 05/14/19 16:54 Aspirin Ec Tab* PO 81 mg DAILY TRUDY Administration Atorvastatin Calcium 20 mg 05/11/19 21:00 05/13/19 20:15 Lipitor* PO 20 mg BEDTIME TRUDY Administration Calcitriol 0.25 mcg 05/12/19 09:00 05/14/19 15:52 Rocaltrol Cap* PO Not Given DAILY TRUDY Calcium Acetate 1,334 mg 05/12/19 07:30 05/14/19 17:33 Phoslo Cap* PO 1,334 mg AC TRUDY Administration Docusate Sodium 100 mg 05/11/19 21:00 05/14/19 15:52 Colace Cap* PO Not Given BID TRUDY Erythromycin 1 applic 05/11/19 21:00 05/14/19 17:37 Erythromycin Opth Oint* LEFT EYE 05/15/19 23:59 1 applic TID TRUDY Administration Melatonin 3 mg 05/11/19 19:50 05/11/19 21:13 Melatonin PO 3 mg BEDTIME PRN Administration SLEEP Midodrine 2.5 mg 05/12/19 16:00 05/14/19 17:34 Midodrine PO 2.5 mg 0000,0800,1600 TRUDY Administration Protocol Senna 2 tab 05/11/19 17:31 05/12/19 19:40 Senokot Tab* PO 2 tab BEDTIME PRN Administration CONSTIPATION Timolol Maleate 1 drop 05/12/19 09:00 05/14/19 17:35 Timoptic Ophth.Soln 0.25% BOTH EYES 1 drop DAILY TRUDY Administration Vital Signs: Vital Signs Temp Pulse Resp BP Pulse Ox 98.4 F 104 24 106/86 99 05/14/19 17:10 05/14/19 17:10 05/14/19 17:10 05/14/19 17:10 05/14/19 17:10 Lab Results: Laboratory Results - last 24 hr 05/14/19 05/14/19 07:52 17:38 POC Glucose (mg/dL) 135 H 88 Exam: GENERAL: No distress HEENT: Atraumatic LUNGS: Clear bilaterally HEART: Regular rhythm ABDOMEN: Soft EXTREMITIES: Normal bulk and tone NEUROLOGIC: Sensation intact. Able to move 4 extremities Assessment/Plan: 1. Acute on chronic renal failure, now on Hemodialysis: HD //. PT/OT 2. Weakness from renal failure: PT/OT. Doing better 3. Elevated blood glucose: will need follow up 4. Hypotension: lopressor stopped 5. History of CVA: ASA/Crestor 6. Advance Directives: Full code 7. DVT Prophylaxis: He scores low risk. Ambulate 05/14/19 19:25
[2019-05-14] MEDS: Atorvastatin* 20 MG TAB PO SCH (20:51)
[2019-05-14] MEDS: Melatonin 3 MG TAB PO PRN (20:51)
[2019-05-14] MEDS: Senna TAB 8.6 mg* TAB PO PRN (20:52)
[2019-05-15] MEDS: Timolol 0.25% OPHTH.SOLN* BTL BOTH EYES SCH (09:34)
[2019-05-15] MEDS: Calcium Acetate CAP* 667 MG PO SCH ×3 (09:35→16:56)
[2019-05-15] MEDS: Docusate CAP* 100 MG PO SCH ×2 (09:35→20:59)
[2019-05-15] MEDS: Calcitriol CAP* 0.25 MCG PO SCH (09:35)
[2019-05-15] MEDS: Aspirin EC TAB* 81 MG TAB.EC PO SCH (09:36)
[2019-05-15] MEDS: Erythromycin OPTH OINT* APPLIC OINT LEFT EYE SCH ×3 (09:37→21:06)
--- NOTE | 2019-05-15 17:10 | PN ---
Progress Note Date of Service: 05/15/19 Note: GOPI QUIROZ was visited. Therapy notes read and reviewed. He has no complaints. He seems ready to go home tomorrow. BP ok off Lopressor Current Medications: Active Medications Generic Name Dose Route Start Last Admin Trade Name Josseline PRN Reason Stop Dose Admin Acetaminophen 650 mg 05/11/19 17:31 05/14/19 17:34 Tylenol Tab* PO 650 mg Q6H PRN Administration FEVER/PAIN Aspirin 81 mg 05/12/19 09:00 05/15/19 09:36 Aspirin Ec Tab* PO 81 mg DAILY TRUDY Administration Atorvastatin Calcium 20 mg 05/11/19 21:00 05/14/19 20:51 Lipitor* PO 20 mg BEDTIME TRUDY Administration Calcitriol 0.25 mcg 05/12/19 09:00 05/15/19 09:35 Rocaltrol Cap* PO 0.25 mcg DAILY TRUDY Administration Calcium Acetate 1,334 mg 05/12/19 07:30 05/15/19 16:56 Phoslo Cap* PO 1,334 mg AC TRUDY Administration Docusate Sodium 100 mg 05/11/19 21:00 05/15/19 09:35 Colace Cap* PO 100 mg BID TRUDY Administration Erythromycin 1 applic 05/11/19 21:00 05/15/19 14:05 Erythromycin Opth Oint* LEFT EYE 05/15/19 23:59 1 applic TID TRUDY Administration Melatonin 3 mg 05/11/19 19:50 05/14/19 20:51 Melatonin PO 3 mg BEDTIME PRN Administration SLEEP Midodrine 2.5 mg 05/12/19 16:00 05/15/19 16:57 Midodrine PO 2.5 mg 0000,0800,1600 TRUDY Administration Protocol Senna 2 tab 05/11/19 17:31 05/14/19 20:52 Senokot Tab* PO 2 tab BEDTIME PRN Administration CONSTIPATION Timolol Maleate 1 drop 05/12/19 09:00 05/15/19 09:34 Timoptic Ophth.Soln 0.25% BOTH EYES 1 drop DAILY TRUDY Administration Vital Signs: Vital Signs Temp Pulse Resp BP Pulse Ox 98.3 F 97 14 141/76 100 05/15/19 06:15 05/15/19 06:15 05/15/19 08:15 05/15/19 06:15 05/15/19 08:15 Lab Results: Laboratory Results - last 24 hr 05/14/19 05/15/19 17:38 07:57 POC Glucose (mg/dL) 88 99 Exam: GENERAL: No distress HEENT: Atraumatic LUNGS: Clear bilaterally HEART: Regular rhythm ABDOMEN: Soft EXTREMITIES: Normal bulk and tone NEUROLOGIC: Sensation intact. Able to move 4 extremities Assessment/Plan: 1. Acute on chronic renal failure, now on Hemodialysis: HD //. PT/OT 2. Weakness from renal failure: PT/OT. Doing better 3. Elevated blood glucose: will need follow up 4. Hypotension: lopressor stopped 5. History of CVA: ASA/Crestor 6. Advance Directives: Full code 7. DVT Prophylaxis: He scores low risk. Ambulate 05/15/19 17:11
[2019-05-15] MEDS: Acetaminophen TAB* 325 MG PO PRN (18:34)
[2019-05-15] MEDS: Atorvastatin* 20 MG TAB PO SCH (20:59)
[2019-05-16 05:44] VITALS: BP 135/82
[2019-05-16] MEDS: Aspirin EC TAB* 81 MG TAB.EC PO SCH (08:14)
[2019-05-16] MEDS: Calcium Acetate CAP* 667 MG PO SCH ×3 (08:14→15:41)
[2019-05-16] MEDS: Calcitriol CAP* 0.25 MCG PO SCH (08:14)
[2019-05-16] MEDS: Docusate CAP* 100 MG PO SCH (08:16)
[2019-05-16] MEDS: Timolol 0.25% OPHTH.SOLN* BTL BOTH EYES SCH (08:16)
[2019-05-16] MEDS: Acetaminophen TAB* 325 MG PO PRN (09:07)
--- NOTE | 2019-05-16 19:44 | DS ---
CC: Dr. Miller * DISCHARGE SUMMARY: DATE OF ADMISSION: 05/11/19 DATE OF DISCHARGE: 05/16/19 DISCHARGE DIAGNOSES: 1. End-stage renal disease, on hemodialysis. 2. Impaired glucose tolerance. 3. Hypertension. 4. Folliculitis. HISTORY OF PRESENT ILLNESS AND HOSPITAL COURSE: For complete history of the events leading up to his rehab stay, please see the history and physical dictated by me on 05/11/19. While on the rehab unit, the patient did not require any insulin coverage for his fingersticks. Most of them remained in the 75 to 128 range. He had an occasional fingerstick over 150, maybe once while he was here. His hemoglobin A1c was checked on 05/16/19 at the request of the clinical educator. It was 7.0. The patient continued to receive dialysis while on the rehab unit. He received dialysis Tuesdays, , and Saturdays. His renal function was checked on 05/13/19. His BUN was 43, his creatinine 7.34. The patient was, otherwise, medically stable. His Lopressor was discontinued as he was on both Lopressor and midodrine. The patient remained on PhosLo and Rocaltrol while he was here. The patient received both physical therapy and occupational therapy while on the rehab unit and made good gains with both disciplines. With physical therapy, at the time of admission, the patient required supervision for bed mobility, contact guard for transfers, contact guard to ambulate. He had occasional losses of balance and was unsteady at times. With occupational therapy, at the time of admission , the patient was supervision for upper body dressing, supervision for lower body dressing, supervision for bathing, supervision for grooming, and supervision for toileting. By the time of discharge, he was independent in all activities. He was discharged home with his ex- after dialysis on 05/16/19. DISCHARGE DIET: Renal. DISCHARGE MEDICATIONS: 1. Aspirin 81 mg daily. 2. Lipitor 20 mg daily. 3. Rocaltrol 0.25 mcg daily. 4. PhosLo 2 capsules 3 times a day before meals. 5. Midodrine 2.5 mg daily every 8 hours - at midnight, 8 a.m., and 4 p.m. 6. Timoptic eye drops 0.25% 1 drop to both eyes daily. SERVICES AFTER DISCHARGE: The patient will continue to receive hemodialysis 3 times a week. Through the visiting nurse service in [place], he will have home physical therapy. FOLLOWUP: The patient will follow up with the local dialysis center as well as one of the nephrologists here. He will also follow up with Dr. Miller. CONDITION AT DISCHARGE: The patient was discharged home in stable condition. TIME SPENT: Time for this discharge was approximately 50 minutes, greater than half of that was spent with the patient and his ex- explaining post- rehabilitation medications, therapies, dialysis schedule, and followup. [id number]/CPS #: [id number] MTDD
== END 2019-05-16 16:00 | disposition home health service (06) | DRG 860 ==
LOC: PMRU 16:44
PROVIDERS: ADMIT Physical Medicine & Rehabilitation; ATTEND Physical Medicine & Rehabilitation
PROC: F07Z5ZZ Bed Mobility Treatment (ICD-10-PCS; principal; 2019-05-11)
PROC: F07Z8ZZ Transfer Training Treatment (ICD-10-PCS; 2019-05-11)
PROC: F07Z9ZZ Gait Training/Functional Ambulation Treatment (ICD-10-PCS; 2019-05-11)
PROC: F08Z0ZZ Bathing/Showering Techniques Treatment (ICD-10-PCS; 2019-05-11)
PROC: F08Z1ZZ Dressing Techniques Treatment (ICD-10-PCS; 2019-05-11)
PROC: F08Z3ZZ Feeding/Eating Treatment (ICD-10-PCS; 2019-05-11)
DX: R53.81 Other malaise (principal); N18.6 End stage renal disease; I12.0 Hypertensive chronic kidney disease with stage 5 chronic kidney disease or end stage renal disease; E11.22 Type 2 diabetes mellitus with diabetic chronic kidney disease; R53.1 Weakness; L73.9 Follicular disorder, unspecified; Z99.2 Dependence on renal dialysis; Z86.73 Personal history of transient ischemic attack (TIA), and cerebral infarction without residual deficits; Z79.82 Long term (current) use of aspirin; Z79.899 Other long term (current) drug therapy
CPT/HCPCS: 36415; 80053; 83036; 85025; A9270-GY